=== PATIENT | female | born 1970 | race Caucasian/White ===

== ENCOUNTER 2018-01-31 16:50 | Emergency (ER) | payer OTHER ==
[~2018-01-31] VITALS: Ht 152.4 cm; Wt 90.7 kg
[2018-01-31] MEDS ORDERED: FUROSEMIDE 40 MG TAB PO ONE (18:15)
[2018-01-31 19:12] VITALS: BP 114/75
== END 2018-01-31 18:55 | disposition home or self-care (01) ==
LOC: ER 16:50
DX: R60.9 Edema, unspecified (principal); Z79.52 Long term (current) use of systemic steroids
CPT/HCPCS: 99283